=== PATIENT | male | born 2000 | race Two or more races ===

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

== ENCOUNTER 2022-08-14 23:52 | Emergency (ER) | payer MEDICAID, OTHER ==
[~2022-08-14] VITALS: Ht 172.7 cm; Wt 81.0 kg
[2022-08-15] MEDS ORDERED: CYCL-837 PO (02:24)
[2022-08-15] MEDS ORDERED: IBUP800T26 PO (02:24)
[2022-08-15 03:58] VITALS: BP 147/64
== END 2022-08-15 04:00 | disposition home or self-care (01) ==
LOC: ER 23:52
DX: S13.4XXA Sprain of ligaments of cervical spine, initial encounter (principal); M54.9 Dorsalgia, unspecified; R07.89 Other chest pain; V43.52XA Car driver injured in collision with other type car in traffic accident, initial encounter; Y93.89 Activity, other specified; Y92.410 Unspecified street and highway as the place of occurrence of the external cause; Y99.8 Other external cause status
CPT/HCPCS: 70450; 71046; 71250; 72125; 74176